=== PATIENT | male | born 1975 | race Caucasian/White ===

== ENCOUNTER 2018-08-02 08:00 | Emergency (ER) | payer MEDICAID | END 2018-08-02 09:37 | disposition home or self-care (01) | LOC: ED 08:00 ==

== ENCOUNTER 2018-11-03 00:50 | Emergency (ER) | payer MEDICAID ==
[~2018-11-03] VITALS: Ht 167.6 cm; Wt 57.6 kg
[2018-11-03 00:58] VITALS: Ht 167.6 cm; Wt 57.6 kg
[2018-11-03 01:41] LABS: BASOPHIL % 0.4 % (0-2); PLATELET COUNT 228 x10^3mcL (130-400); RED CELL DISTRIBUTION WIDTH 13.2 % (11.5-14.5)
[2018-11-03 01:42] LABS: CALCIUM 8.8 mg/dL (8.5-10.1); CARBON DIOXIDE 25.9 mmol/L (21-32); CHLORIDE SERUM 106 mmol/L (98-107); CREATININE SERUM 0.8 mg/dL (0.7-1.3); GFR1 > 60 mL/min; GLUCOSE SERUM 110 mg/dL (74-106); POTASSIUM SERUM 3.9 mmol/L (3.5-5.1); SODIUM SERUM 141 mmol/L (136-145)
[2018-11-03 01:47] LABS: ALBUMIN 4.1 g/dL (3.4-5.0); ALKALINE PHOSPHATASE 100 U/L (46-116); ALT/SGPT 22 U/L (16-63); AST/SGOT 10 U/L (15-37); BILIRUBIN TOTAL 0.44 mg/dL (0.20-1.00); LIPASE 111 IU/L (73-393); TOTAL PROTEIN, SERUM 7.4 g/dL (6.4-8.2)
[2018-11-03 04:05] VITALS: BP 128/76
== END 2018-11-03 04:05 | disposition home or self-care (01) ==
LOC: ED 00:50
PROVIDERS: Emergency Medicine
DX: K29.00 Acute gastritis without bleeding (principal)
CPT/HCPCS: J2405; J3490; J7030; Q0092

== ENCOUNTER 2020-02-19 18:32 | Emergency (ER) | payer MEDICAID ==
[~2020-02-19] VITALS: Ht 162.6 cm; Wt 59.0 kg
[2020-02-19 18:39] VITALS: Ht 162.6 cm; Wt 59.0 kg
[2020-02-19 19:50] LABS: BASOPHIL % 0.3 % (0-2); PLATELET COUNT 171 x10^3mcL (130-400); RED CELL DISTRIBUTION WIDTH 14.2 % (11.5-14.5)
[2020-02-19 19:59] LABS: CALCIUM 8.4 mg/dL (8.5-10.1); CARBON DIOXIDE 26.2 mmol/L (21-32); CHLORIDE SERUM 102 mmol/L (98-107); GFR1 > 60 mL/min; GLUCOSE SERUM 135 mg/dL (74-106); POTASSIUM SERUM 3.8 mmol/L (3.5-5.1); SODIUM SERUM 139 mmol/L (136-145)
[2020-02-19 20:12] LABS: T3 TOTAL 1.22 ng/mL
[2020-02-19 20:13] LABS: ALBUMIN 4.4 g/dL (3.4-5.0); ALKALINE PHOSPHATASE 108 U/L (46-116); ALT/SGPT 30 U/L (16-63); AST/SGOT 19 U/L (15-37); BILIRUBIN TOTAL 0.26 mg/dL (0.20-1.00); C REACTIVE PROTEIN 0.3 mg/dL (<=0.9); TOTAL PROTEIN, SERUM 7.7 g/dL (6.4-8.2)
[2020-02-19 20:14] LABS: FREE T4 1.13 ng/dL (0.76-1.46); FREE THYROXINE INDEX 2.8 ug/dL (1.4-4.5); T4(THYROXINE) 8.1 ug/dL (4.7-13.3)
[2020-02-19 20:18] LABS: CK-MB 0.8 ng/mL (0-3.6)
[2020-02-19 20:21] LABS: microscopic required? YES; urine erythrocyte TRACE (NEGATIVE)
[2020-02-19 20:32] LABS: AMPHETAMINE QUAL UR NONE DETECTED (See below)
[2020-02-19 20:43] LABS: ERYTHROCYTE SED RATE 5 mm/hr (0-15)
[2020-02-19 22:06] VITALS: BP 112/70
== END 2020-02-19 22:06 | disposition home or self-care (01) ==
LOC: ED 18:32
PROVIDERS: Specialist
DX: R07.89 Other chest pain (principal); M79.10 Myalgia, unspecified site; R00.2 Palpitations; R06.02 Shortness of breath; Z20.828 Contact with and (suspected) exposure to other viral communicable diseases
CPT/HCPCS: 84439; G0480; J1885; J2060; J7030; Q0092